=== PATIENT | female | born 1975 | race Caucasian/White ===

== ENCOUNTER → 2017-05-06 | Outpatient (CLI) | payer OTHER ==
[~2017-05-06] MED LIST: ACET50TA PO; IBUP80TA PO; LEVO175T PO
[2017-05-06 19:05] LABS: FREE T4 1.14 NG/DL (0.76-1.46)
== END ==
LOC: M WUC 11:28
PROVIDERS: ATTEND Family Medicine
DX: E89.0 Postprocedural hypothyroidism (principal)